=== PATIENT | male | born 1990 | race African-American/Black ===

== ENCOUNTER 2018-12-21 00:46 | Emergency (ER) | payer SELFPAY ==
[2018-12-21] MEDS ORDERED: HYDROcodone/Acetaminophen 10/325 mg Tablet ONE (01:24)
[2018-12-21] MEDS ORDERED: AMOXicillin 250 MG CAP ONE ×2 (01:25)
== END 2018-12-21 01:30 | disposition home or self-care (01) ==
LOC: BURERS 00:46
DX: K02.9 Dental caries, unspecified (principal); F17.210 Nicotine dependence, cigarettes, uncomplicated
CPT/HCPCS: 99282